=== PATIENT | male | born 1975 | race Caucasian/White ===

== ENCOUNTER 2021-05-12 21:09 | Emergency (ER) | payer BC, SELFPAY ==
--- NOTE | ~2021-05-12 | XR_ITS ---
EXAMINATION: XR chest 2V DATE: 05/12/2021 21:22 INDICATION: Right anterior upper chest pain. TECHNIQUE: Frontal and lateral views of the chest were obtained. COMPARISON: None. FINDINGS: The chest demonstrates clear lungs without pneumonia, pleural effusion, or pneumothorax. Th e heart size is normal. There are surgical clips in the abdomen. IMPRESSION: 1. No acute cardiopulmonary disease. Reviewed, dictated and finalized at location A.
--- NOTE | ~2021-05-12 | XR_ITS ---
EXAMINATION: XR ribs RT 2V DATE: 05/12/2021 21:36 INDICATION: Right subpectoral pain with breathing. TECHNIQUE: A frontal inspiratory view of the chest and 3 views of the right ribs were obtained. COMPARISON: Chest radiograph dated 05/12/2021 FINDINGS: No rib fractures identified. Visualized portions of the lungs are clear. No airspace opacities, pulmo nary edema, pneumothorax or pleural effusion. Cardiomediastinal silhouette is normal. Surgical clips projecting over the left side of L1. IMPRESSION: 1. No rib fracture or acute cardiopulmonary disease. Reviewed, dictated and finalized at location A.
[2021-05-12 21:10] VITALS: BP 123/90; PULSE 50; RESP 16; TEMP 36.4; O2SAT 100
--- NOTE | 2021-05-12 21:19 | PC.NURSE ---
Pt to imaging at this time.
[2021-05-12 21:22] VITALS: O2SAT 100
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
[2021-05-12 21:29] VITALS: BP 122/92; PULSE 53; RESP 16; O2SAT 100
[2021-05-12 22:03] VITALS: BP 120/80; PULSE 59; RESP 16; O2SAT 99
[2021-05-12] MEDS: HYDROcodone/acetaminophen (*CRX) 5-325 MG TABLET 1 TAB PO (22:35)
[2021-05-12] MEDS: CYCLOBENZAPRINE HCL 10 MG TABLET PO (22:35)
[2021-05-12 22:45] VITALS: BP 138/88; PULSE 54; RESP 16; O2SAT 99
== END 2021-05-12 22:46 | disposition home or self-care (01) ==
PROVIDERS: Emergency Provider Emergency Medicine
DX: S29.011A Strain of muscle and tendon of front wall of thorax, initial encounter (principal); V93.88XA Other injury due to other accident on board other unpowered watercraft, initial encounter; Y93.18 Activity, surfing, windsurfing and boogie boarding
CPT/HCPCS: 71046; 71100; 99283; A9270

== ENCOUNTER 2022-10-17 15:09 | Outpatient (CLI) | payer BC, SELFPAY ==
[2022-10-17 19:17] LABS: Kit Draw Collected
== END 2022-10-17 15:10 | disposition home or self-care (01) ==
LOC: ANHGOSHLAB 15:12
PROVIDERS: PCP Internal Medicine; Visit Provider Internal Medicine
DX: T14.8XXA Other injury of unspecified body region, initial encounter (principal)
CPT/HCPCS: 36415

== ENCOUNTER 2025-09-08 14:50 | Emergency (ER) | payer BC, SELFPAY ==
[2025-09-08 15:03] VITALS: BP 134/84; PULSE 71; RESP 16; TEMP 36.4; O2SAT 99
--- NOTE | 2025-09-08 16:13 | ED_ITS ---
HPI - General Adult General Chief complaint: Upper Respiratory Infection Stated complaint: SINUS/RUNNY NOSE/COUGH Source: patient Mode of arrival: ambulatory Limitations: no limitations History of Present Illness HPI narrative: Patient presents for evaluation of sinus symptoms for last 5 days. Symptoms include sinus pressure, nasal congestion, thick mucopurulent discharge and occasional cough. No fever, chills, nausea, vomiting or diarrhea. No recent sick contacts to his knowledge. He does not smoke. He has used a sinus rinse with some relief in his symptoms. Related Data Allergies Allergy/AdvReac Type Severity Reaction Status Date / Time No Known Allergies Allergy Verified 09/08/25 14:52 Review of Systems Review of Systems: CONSTITUTIONAL: Denies fever, chills, or sweats. EYES: Denies visual changes, redness, or discharge. ENT: Reports sinus congestion, maxillary and frontal sinus pressure and thick mucopurulent nasal discharge CARDIOVASCULAR: Denies chest pain, palpitations, or edema. RESPIRATORY: reports cough. Denies shortness of breath. GASTROINTESTINAL: Denies abdominal pain, nausea, vomiting, or diarrhea. GENITOURINARY: Denies dysuria or hematuria. SKIN: Denies rash or itching. MUSCULOSKELETAL: Denies back pain, joint pain, or myalgia. NEUROLOGIC: Denies headache, numbness, dizziness, or weakness. PSYCHIATRIC: Denies anxiety or depression. [facility] Past Medical History Medical History Kidney donor Anxiety Surgical History Surgical History History of nephrectomy Family History Family History Mother Depression Anxiety Hypertension Father Anxiety Depression Hypertension Cancer Diabetes mellitus Grandparent Cancer Sibling Anxiety Depression Sibling Anxiety Depression Social History Social History Smoking status: Never smoker Alcohol intake: current Substance use: never Do You Feel Safe in your Home?: Yes Lack of Transportation: No Lack of Food: Never True Current Housing: I Have Housing Concerned About Future Housing: No Difficulty Paying Gas/Electric Bills: No Difficulty Paying for Meds: No Currently Unemployed: No Education: Master's Degree or Higher Difficulty w/ Childcare or Family Care: No Exam Narrative: GENERAL: Well-appearing, well-nourished, and in no acute distress. HEAD: Normocephalic, atraumatic. EYES: PERRLA and EOMI. ENT: Nares clear, no rhinorrhea or epistaxis. Mucous membranes moist. Oropharynx without tonsillar hypertrophy exudate or other lesions. Bilateral TMs pearly martin nonbulging NECK: Supple. No adenopathy or masses. No carotid bruits or JVD CHEST: Clear to auscultation. No respiratory distress. No wheezes rales or rhonchi HEART: Regular rate and rhythm. No murmur heard. Normal peripheral pulses. ABDOMEN: Soft, nontender, nondistended, normal active bowel sounds. EXTREMITIES: Normal range of motion. No edema. SKIN: Warm, dry, no rash. NEURO: No focal deficits. Alert and oriented x3. PSYCH: Normal mood and affect. Course Course Emergency Course: this is a 50-year-old male who presented for evaluation of sinus symptoms. He meets criteria for bacterial sinusitis based upon mucopurulent nature of discharge. Will discharge with Augmentin. Increase hydration. [id number] agents for symptom management. Follow up with primary provider. Go to the ER for worsening symptoms. Patient in agreement with plan of care. Level of Care: Express Care Visit Vital Signs Vital signs: Vital Signs Temperature 36.4 C L 09/08/25 15:03 Pulse Rate 71 09/08/25 15:03 Respiratory Rate 16 09/08/25 15:03 Blood Pressure 134/84 09/08/25 15:03 Pulse Oximetry 99 09/08/25 15:03 Temperature 36.4 C L 09/08/25 15:03 Pulse Rate 71 09/08/25 15:03 Respiratory Rate 16 09/08/25 15:03 Blood Pressure 134/84 09/08/25 15:03 Pulse Oximetry 99 09/08/25 15:03 Medical Decision Making Vital Signs Vital Signs: Vital Signs Temperature 36.4 C L 09/08/25 15:03 Pulse Rate 71 09/08/25 15:03 Respiratory Rate 16 09/08/25 15:03 Blood Pressure 134/84 09/08/25 15:03 Pulse Oximetry 99 09/08/25 15:03 Temperature 36.4 C L 09/08/25 15:03 Pulse Rate 71 09/08/25 15:03 Respiratory Rate 16 09/08/25 15:03 Blood Pressure 134/84 09/08/25 15:03 Pulse Oximetry 99 09/08/25 15:03 Discharge Plan Discharge Clinical Impression: Sinusitis Patient Disposition: Home Condition: Stable Instructions: Sinusitis (ED) Patient Language: Latvian Prescriptions: New amoxicillin-pot clavulanate 875-125 mg tablet 1 tablet PO Q12H Qty: 20 0RF No Action venlafaxine 37.5 mg capsule,extended release 24hr 37.5 mg PO QPM Qty: 90 3RF Follow-up/Referrals: Henry Castellon DO [Primary Care Provider, [facility]] Time of Disposition: 16:11
== END 2025-09-08 16:12 | disposition home or self-care (01) ==
PROVIDERS: Emergency Provider Nurse Practitioner; PCP Family Medicine
DX: J32.9 Chronic sinusitis, unspecified (principal)
CPT/HCPCS: 99213; G0463